=== PATIENT | male | born 1995 | race Caucasian/White ===

== ENCOUNTER 2018-12-11 02:02 | Emergency (ER) | payer SELFPAY ==
[2018-12-11] MEDS ORDERED: Ondansetron PF 4 MG/2 ML Vial ONE (02:25)
--- NOTE | 2018-12-11 09:16 | CT ---
PRELIMINARY REPORT/[facility]/EMERGENTY AFTER-HOURS PROCEDURE CT Cervical Spine Without Contrast EXAM DATE/TIME: 12/11/2018 3:00 AM CLINICAL HISTORY: 23 years old, male; Injury; Fall; Initial encounter; Blunt trauma; Presents via EMS for evaluation of acute ETOH intoxication. Patient was a [place] tonight. Was combative but has since calmed down. N o complaints other than nausea. Patient A & O x 3. Airway patent. TECHNIQUE: Axial computed tomography images of the cervical spine without intravenous contrast. COMPARISON: No relevant prior studies available. FINDINGS: Vertebrae: No acute fracture. No subluxation. Discs/Spinal canal/Neural foramina: No spinal stenosis. No neural foraminal narrowing. Soft tissues: Unremarkable. Lungs: Lung apices are normal. IMPRESSION: No acute fracture or subluxation. Thank you for allowing us to participate in the care of your patient. Dictated and Authenticated by: Bayron Mckeon MD 12/11/2018 3:32 AM Central Time ([place] & [place]) FINAL REPORT CT OF THE CERVICAL SPINE WITHOUT CONTRAST: FINDINGS/IMPRESSION: I agree with the findings and impression given in the preliminary report per [facility] physician. No evide nce of acute osseous abnormality of the cervical spine. POS: [facility]
--- NOTE | 2018-12-11 09:18 | CT ---
PRELIMINARY REPORT/[facility]/EMERGENTY AFTER-HOURS PROCEDURE CT Head Without Contrast EXAM DATE/TIME: 12/11/2018 3:00 AM CLINICAL HISTORY: 23 years old, male; Injury; Fall; Initial encounter; Blunt trauma; Presents via EMS for evaluation of acute ETOH intoxication. Patient was a [place] tonight. Was combative but has since calmed down. N o complaints other than nausea. Patient A & O x 3. Airway patent. TECHNIQUE: Axial computed tomography images of the head/brain without contrast. COMPARISON: No relevant prior studies available. FINDINGS: Brain: Normal. No hemorrhage. No significant white matter disease. No edema. Ventricles: Normal. No ventriculomegaly. Bones/joints: Unremarkable. No acute fracture. Sinuses: Visualized sinuses are unremarkable. No acute sinusitis. Mastoid air cells: Visualized mastoid air cells are unremarkable. No mastoid effusion. Soft tissues: Possible mild posterior scalp vertex soft tissue edema. IMPRESSION: 1. No acute intracranial findings. 2. No acute fracture. Thank you for allowing us to participate in the care of your patient. Dictated and Authenticated by: Bayron Mckeon MD 12/11/2018 3:36 AM Central Time ([place] & [place]) FINAL REPORT EMERGENT AFTER HOURS CT BRAIN WITHOUT CONTRAST: FINDINGS/IMPRESSION: I agree with the findings and impression given in the preliminary report, per the [facility] physician. No evidence of acute intracranial abnormality. POS: [facility]
== END 2018-12-11 06:18 | disposition home or self-care (01) ==
LOC: ERS 02:02
DX: F10.129 Alcohol abuse with intoxication, unspecified (principal)
CPT/HCPCS: 70450; 72125; 93005; 96361; 96374; J2405